=== PATIENT | male | born 1950 | race Two or more races ===

== ENCOUNTER → 2017-08-24 | Emergency (ER) | payer OTHER ==
[~2017-08-24] VITALS: Ht 185.4 cm; Wt 99.8 kg
[~2017-08-24] MED LIST: CELEBREX100 MG PO; COZAAR50 MG; SKELAXIN800 MG PO
== END | disposition home or self-care (01) ==
LOC: ER 09:42
DX: M54.42 Lumbago with sciatica, left side (principal)